=== PATIENT | female | born 2000 | race African-American/Black ===

== ENCOUNTER 2022-05-18 19:02 | Emergency (ER) | payer SELFPAY | END 2022-05-18 19:30 | disposition home or self-care (01) | LOC: CSHERS 19:02 | DX: S00.03XA Contusion of scalp, initial encounter (principal); X58.XXXA Exposure to other specified factors, initial encounter | CPT/HCPCS: 99283 ==

== ENCOUNTER 2022-06-27 20:30 | Emergency (ER) | payer SELFPAY | END 2022-06-27 23:51 | disposition left against medical advice (07) | LOC: CSHERS 20:30 | DX: Z53.21 Procedure and treatment not carried out due to patient leaving prior to being seen by health care provider (principal) ==

== ENCOUNTER 2023-01-31 15:33 | Emergency (ER) | payer OTHER, SELFPAY ==
[2023-01-31] MEDS ORDERED: Acetaminophen 325 MG TAB ONE (16:18)
== END 2023-01-31 17:15 | disposition home or self-care (01) ==
LOC: EEVIPCON 15:33 → CSHERS 15:33
DX: S30.1XXA Contusion of abdominal wall, initial encounter (principal); S80.12XA Contusion of left lower leg, initial encounter; S20.211A Contusion of right front wall of thorax, initial encounter; S09.90XA Unspecified injury of head, initial encounter; F17.210 Nicotine dependence, cigarettes, uncomplicated; V89.2XXA Person injured in unspecified motor-vehicle accident, traffic, initial encounter
CPT/HCPCS: 71045